=== PATIENT | male | born 1960 | race Caucasian/White ===

== ENCOUNTER 2017-07-02 10:18 | Emergency (ER) | payer OTHER ==
[~2017-07-02] VITALS: Wt 88.5 kg
[2017-07-02] MEDS ORDERED: SEPTDS PO (13:10)
[2017-07-02] MEDS ORDERED: DELTASONE20 M1 PO (13:10)
[2017-07-02] MEDS ORDERED: PROAIR HFA8.5 GM INH (13:10)
== END 2017-07-02 14:29 | disposition home or self-care (01) ==
LOC: ED 10:18
DX: Z20.818 Contact with and (suspected) exposure to other bacterial communicable diseases (principal); R05 Cough; Z88.1 Allergy status to other antibiotic agents

== ENCOUNTER 2017-07-11 11:52 | Emergency (ER) | payer OTHER ==
[~2017-07-11] VITALS: Ht 190.5 cm; Wt 90.7 kg
[~2017-07-11 11:52] MED LIST: DELTASONE20 M1 PO; PROAIR HFA8.5 GM INH; SEPTDS PO
== END 2017-07-11 14:13 | disposition home or self-care (01) ==
LOC: ED 11:52
DX: J06.9 Acute upper respiratory infection, unspecified (principal); Z79.899 Other long term (current) drug therapy; Z88.1 Allergy status to other antibiotic agents

== ENCOUNTER → 2024-08-20 | Outpatient (CLI) | payer OTHER | END | disposition home or self-care (01) | LOC: RHCWE 17:16 | PROVIDERS: ATTEND Nurse Practitioner Family | DX: J02.9 Acute pharyngitis, unspecified (principal) ==